=== PATIENT | female | born 1995 | race Caucasian/White ===

== ENCOUNTER 2018-10-16 13:19 | Emergency (ER) | payer OTHER ==
[2018-10-16 13:29] VITALS: BP 105/77
--- NOTE | 2018-10-16 14:58 | EDPHY ---
General Time Seen by Provider: 10/16/18 14:35 Narrative: CLINICAL IMPRESSION: Facial laceration ASSESSMENT/PLAN: Patient is a 22-year-old female with no significant medical history who presents to the emergency department after sustaining a facial laceration just prior to arrival. Patient is not toxic appearing, she is in no distress. Physical examination reveals 1.5 cm laceration inferior to the right eyebrow. There is no evidence of deep structure involvement, neurovascular compromise, foreign body, or bony involvement. The wound was not contaminated, tetanus status was up-to-date. The wound was irrigated and then repaired as discussed in the procedure note, the patient tolerated this well. The patient did not lose consciousness, do not suspect skull fracture or TBI. Wound care instructions discussed with patient. The patient does not yet have a primary care provider, referral has been provided. The patient understands the importance of suture removal in 5 days, she will return to the emergency department to have them removed. Return precautions discussed- she will return for increased pain, signs of infection, fever, vomiting, if the wound opens or for any other concerns. Patient and family member both verbalize understanding and are in agreement with plan] DIFFERENTIAL DIAGNOSIS: includes but not limited to laceration of tendon or vascular structure, underlying fracture, laceration with retained FB ED PROCEDURES: Laceration Repair Verbal consent obtained by patient. Risks discussed, including but not limited to infection, pain, retained foreign body, need for additional repair, poor cosmetic result, tendon damage, nerve damage, poor wound healing, vascular damage. Alternatives to repair discussed. Oley protocol used to establish correct patient, procedure, equipment, network diagnostic support specialist, and site. Anesthesia obtained by local infiltration. Anesthetized with lidocaine with epinephrine. Laceration location inferior to the right eyebrow, length 1.5 cm, depth 5 mm, Repair type intermediate. Patient was prepped and draped in usual sterile fashion. Hemostasis achieved with direct pressure. Wound explored through full range of motion and entire depth of wound probed and visualized with gloved finger. No suspicion for nerve damage, tendon damage, underlying fracture, vascular damage, foreign body, or contamination. Area was cleansed with Shur-Clens and irrigated with sterile saline as per protocol. No foreign body or material removed. Repair method sutures, a single deep suture was placed using 6.0 Vicryl. The wound was superficially closed with 7.0 Prolene. Well aligned, closely approximated. wound was dressed with antibiotic ointment. Patient tolerated well with no immediate complications. Wound care: Clean and dry x 24 hours, gently clean with soap and water, cover with topical antibiotic ointment/bandage. Suture/Staple removal: 5 days Days CHIEF COMPLAINT: Laceration HPI: Patient is a 22-year-old female with no significant medical history who presents to the emergency department complaining of facial laceration that she sustained just prior to arrival. Patient reports she was walking with her head down when she accidentally walked into a post, she did not lose consciousness, she is not on aspirin or any anticoagulation. Patient went and sat down when she noticed that she was bleeding from the site of impact. Patient complains of mild pain at the location, denies any severe headache, dizziness, visual changes or eye pain. Patient denies any other injury or complaint. PAST MEDICAL HISTORY: Denies Pertinent Past Surgical History: Denies Social History: Denies REVIEW OF SYSTEMS: All other systems negative Constitutional: No fever, no chills Musculoskeletal: No deformity, no joint pain Skin: Facial laceration, denies rash Neurological: No sensory loss or weakness, no dizziness. PHYSICAL EXAM: General Appearance: Alert, oriented, appropriate for age, cooperative, NAD, well hydrated, non-toxic appearing, VSS, no hypoxia. Neurological: Alert and oriented x 3 Skin: Facial laceration, no rashes. HEENT: Normocephalic. Approximately 1.5 cm laceration noted inferior to the right lateral brow. External ears normal, TMs clear without evidence of hemotympanum. PERRLA, EOMI without evidence of entrapment. Nares are clear, mucosa is pink. Oropharynx is clear, no mandibular pain. Neuro: MENTAL STATUS: Patient is alert and oriented to person, place, time, and situation. Recent and remote memory are intact. Attention and concentration are normal. Found knowledge is appropriate to level of education. Mood and affect normal. SPEECH: Language including naming, repetition, comprehension, and spontaneous speech are normal. No dysarthria or dysphagia. CRANIAL NERVES: II: Visual hightower are full to confrontation. Vision is grossly intact. III, IV, : Pupils are equal, round, reactive to light. Extraocular eye movements are full and without nystagmus. V: Facial sensation is intact to touch symmetrically in all 3 divisions. VII: Face is symmetric at rest with no asymmetry of grimace or evidence of facial weakness. VIII: Hearing is intact bilaterally to finger rub. IX, X: Palate is midline and elevates symmetrically with intact cough/gag. XI: Sternocleidomastoid and trapezius strength is normal. XII: Tongue protrudes midline without atrophy or fasciculations. MOTOR: Normal bulk and tone symmetrically in the upper and lower extremities. Upper extremities: shoulder abduction, elbow flexion, elbow extension, flexion of fingers and finger abduction strength 5/5 bilaterally. Lower extremities: hip flexion, knee flexion and extension, plantar and dorsiflexion of foot, and great toe extension strength 5/5 bilaterally. No pronator drift. SENSORY: Sensation is intact to light touch and symmetric in the UE's in LE's bilaterally. Romberg is negative. COORDINATION: Fine motor and rapid alternating movements are normal. Finger to nose is normal bilaterally. [id number] is normal bilaterally. No abnormal movements noted. There is no tremor at rest or with posture or action. GAIT/STATION: Casual, straightforward gait is normal. Patient can walk on toes and on heels. No gait instability. Upper Extremities: Intact distal pulses, Full range of motion intact, no tenderness, no ecchymosis or edema Lower Extremities: Intact distal pulses, No edema, No tenderness, No cyanosis, full range of motion intact, No calf tenderness bilaterally. MEDICAL DECISION MAKING: Patient was seen independently. Secondary supervising physician at time of evaluation was Dr. Gomez, he did not evaluate this patient. Diagnosis: Facial laceration. New, requires workup Summary: See assessment and plan for summary of ED visit Clinical lab tests: Not applicable. Independent visualization of images, tracing, or specimens not applicable. Decision to obtain medical records or history from someone other than the patient: No Review / Summarize previous medical records: No Discussed patient with another provider yes, Dr. Gomez. - History Smoking Status: Never smoked - Objective Vital Signs: Initial Vital Signs Temperature (C) 36.5 C 10/16/18 13:23 Heart Rate 76 10/16/18 13:23 Respiratory Rate 16 10/16/18 13:23 Blood Pressure 105/77 10/16/18 13:23 O2 Sat (%) 99 10/16/18 13:23 O2 Delivery Mode Room Air Departure - Departure Disposition: Home, Routine, Self-Care Clinical Impression: Facial laceration Qualifiers: Encounter type: initial encounter Qualified Code(s): S01.81XA - Laceration without foreign body of other part of head, initial encounter Condition: Good Instructions: Laceration (ED) Additional Instructions: DISCHARGE INSTRUCTIONS FROM YOUR DOCTOR Thank you for visiting our emergency department today. Please keep in mind that discharge from the emergency department does not mean that there is nothing wrong - it simply means that we have not identified an emergency condition that requires further evaluation or treatment in the hospital. You should always plan to follow up with primary care for re-evaluation of your condition in the next 2-3 days. Keep wound clean and dry for 24 hours, you may shower tomorrow. Clean at least twice daily or when soiled with soap and water, apply antibiotic ointment and dressing. It is very important that you protect herself from the sun, make sure to put sunscreen or cover your incision. Do not soak the wound while the stitches are in place. Anticipate suture removal in 5 days. Tylenol every 4-6 hours as directed as needed for pain. Do not exceed 4000 mg in 24 hours. Ibuprofen as directed every 6-8 hours with food as needed for pain. Stop for stomach upset. Do not exceed 2400 mg in 24 hours. Continue your regular medications as prescribed. Return to the emergency department for suture removal in 5 days and sooner for wound check for any concerns. Return for signs of wound infection ie: redness, swelling, drainage, foul odor, red streaks, fever, chills, pain, bleeding, if the stitches pop, if the wound opens or for any other new, worsening or worrisome symptoms. People present with illnesses and injuries in different ways, and it is always possible that we have missed something. You may always return for re-evaluation if symptoms worsen or if they are not improving or if you develop new/different symptoms. Again, thank you for choosing our emergency department. We hope that you feel better. Referrals: NONE *PRIMARY CARE P,. [Primary Care Provider] - As per Instructions Alma Cunningham MD [Medical Doctor] - As per Instructions
== END 2018-10-16 15:56 | disposition home or self-care (01) ==
PROC: 0HQ1XZZ Repair Face Skin, External Approach (ICD-10-PCS; principal; 2018-10-16)
DX: S01.81XA Laceration without foreign body of other part of head, initial encounter (principal); W22.8XXA Striking against or struck by other objects, initial encounter; Y93.01 Activity, walking, marching and hiking; Y92.9 Unspecified place or not applicable; Y99.9 Unspecified external cause status